=== PATIENT | male | born 1980 | race Caucasian/White ===

== ENCOUNTER 2017-01-23 21:18 | Emergency (ER) | payer OTHER ==
--- NOTE | 2017-01-23 21:30 | PDOC ---
[id number] No Limitations - History of Present Illness Initial Comments: 01/23/17 22:49 Patient is a 36 year old male with past significant medical history of EtOH dependence and major depression who presents to the ED via EMS from [facility] for intoxication. Patient was picked up by EMS at [facility] because he could not be admitted due to intoxication. Patient reports cocaine and alcohol use. Patient states he is unsure of other drug use. Patient presents with papers from [place] 01/23/17 for alcohol intoxication. Patient was last in [facility] in the fall and had a psych admission at [place] for major depression. SH: EtOH abuse gallon of vodka a day, daily smoker, illicit drug use. FH:Mother bipolar, Brother schizophrenia <Jami Zamudio - Last Filed: 01/24/17 02:06> <Lucille Hoang - Last Filed: 01/28/17 19:02> - General Stated Complaint: INTOX Time Seen by Provider: 01/23/17 21:28 Past History <Jami Zamudio - Last Filed: 01/24/17 02:06> - Past Medical History Anemia: No Asthma: No Cancer: No Cardiac Disorders: No CVA: No COPD: No CHF: No Dementia: No Diabetes: No GI Disorders: No Disorders: No HTN: No Hypercholesterolemia: No Kidney Stones: No Liver Disease: No Suicide Attempt (Hx): No Seizures: No Thyroid Disease: No - Surgical History Abdominal Surgery: No Appendectomy: No Cardiac Surgery: No Cholecystectomy: No Lung Surgery: No Neurologic Surgery: No Orthopedic Surgery: No - Psycho/Social/Smoking Cessation Hx Anxiety: No Suicidal Ideation: No Smoking History: Never smoked Have you smoked in the past 12 months: No Hx Alcohol Use: Yes Drug/Substance Use Hx: No Substance Use Type: Alcohol Hx Substance Use Treatment: Yes <Lucille Hoang - Last Filed: 01/28/17 19:02> - Past Medical History Allergies/Adverse Reactions: Allergies Allergy/AdvReac Type Severity Reaction Status Date / Time No Known Allergies Allergy Verified 01/23/17 21:32 Home Medications: Ambulatory Orders Bupropion HCl [Wellbutrin Xl -] 150 mg PO BID 01/24/17 Dextroamphetamine/Amphetamine [Adderall 10 mg Tablet] 30 mg PO DAILY 01/24/17 Zolpidem Tartrate [Ambien] 10 mg PO HS 01/24/17 Bupropion HCl [Wellbutrin -] 150 mg PO BID #30 tablet 01/27/17 Review of Systems - Review of Systems Able to Perform ROS?: No Comments:: 01/23/17 22:49 Unable to obtain due to intoxication. <Jami Zamudio - Last Filed: 01/24/17 02:06> *Physical Exam - Vital Signs Last Vital Signs Temp Pulse Resp BP Pulse Ox 98.2 F 122 H 16 127/94 95 01/23/17 21:33 01/23/17 21:33 01/23/17 21:33 01/23/17 21:33 01/23/17 21:33 - Physical Exam Comments: 01/23/17 23:15 GENERAL: +Urinary incontinence, +disheveled, +lethargic HEENT: +dilated pupils 6 mm bilaterally. Normocephalic, atraumatic. No conjunctival pallor. Sclera are non-icteric. Moist mucous membranes. Oropharynx is clear. NECK: Supple. Full ROM. No JVD. Carotid pulses 2+ and symmetric, without bruits. No thyromegaly. No lymphadenopathy. CARDIOVASCULAR: Regular rate and rhythm. No murmurs, rubs, or gallops. Distal pulses are 2+ and symmetric. PULMONARY: No evidence of respiratory distress. Lungs clear to auscultation bilaterally. No wheezing, rales or rhonchi. ABDOMINAL: Soft. Non-tender. Non-distended. No rebound or guarding. No organomegaly. Normoactive bowel sounds. MUSCULOSKELETAL Normal range of motion at all joints. No bony deformities or tenderness. No CVA tenderness. EXTREMITIES: No cyanosis. No clubbing. No edema. No calf tenderness. SKIN: Warm and dry. Normal capillary refill. No rashes. No jaundice. NEUROLOGICAL: +lethargic upon arrival. Cranial nerves 2-12 intact. No deficits to light touch and temperature in face, upper extremities and lower extremities. No motor deficits in the in face, upper extremities and lower extremities. Normoreflexic in the upper and lower extremities. <Jami Zamudio - Last Filed: 01/24/17 02:06> ED Treatment Course - LABORATORY CBC & Chemistry Diagram: 01/23/17 21:54 01/23/17 21:54 - ADDITIONAL ORDERS Additional order review: 01/23/17 21:54 RBC 5.18 MCV 87.5 MCHC 33.5 RDW 14.1 MPV 7.3 L Neutrophils % 59.6 Lymphocytes % 28.6 Monocytes % 8.0 Eosinophils % 1.8 Basophils % 2.0 <Jami Zamudio - Last Filed: 01/24/17 02:06> - LABORATORY CBC & Chemistry Diagram: 01/23/17 21:54 01/23/17 21:54 <Lucille Hoang - Last Filed: 01/28/17 19:02> Medical Decision Making - Medical Decision Making 01/24/17 02:10 36yo male BIBRama from [facility] detox because he was too inebriated to be admitted -reviewing previous charts show he has been in alcohol detox at [facility] last August and has a long standing history of alcoholism -today he states he had alcohol and cocaine etoh level 530 pt receiving banana bag IV, good respiratory rate plan- send to [facility] DETOX when it is safe <Lucille Hoang - Last Filed: 01/28/17 19:02> *DC/Admit/Observation/Transfer - Attestations Scribe Attestion: 01/23/17 22:50 Documentation prepared by FRED Galindo, acting as medical billing representative for Lucille Hoang MD. <Jami Zamudio - Last Filed: 01/24/17 02:06> <Lucille Hoang - Last Filed: 01/28/17 19:02> Diagnosis at time of Disposition: Alcohol abuse - Discharge Dispostion Disposition: I.P. ALCOHOL/SUBS ABUSE REHAB Condition at time of disposition: Improved - Referrals Referrals: Jeison Currie MD [Staff Physician] - - Patient Instructions Printed Discharge Instructions: DI for Alcohol Abuse Additional Instructions: Activity as tolerated. Stay hydrated. Your blood alcohol level was very elevated but has improved overnight. As we discussed, go directly to [facility], where they will evaluate you for detox admission. Continue your medications as previously prescribed by your physician. Return to the emergency department for any new or concerning symptoms, particularly palpitations or tremors, chest pain or difficulty breathing, confusion.
[2017-01-23] MEDS ORDERED: FOLIC ACID INJECTION - 1 MG, THIAMINE HCL 100 MG, MULTIVIT INJECTION ADULT 10 ML in SOD... IVPB ONE (21:57)
[2017-01-23 22:09] VITALS: TEMP 98.2; BMI 25.0
[2017-01-23] MEDS ORDERED: ONDANSETRON 4 MG/2 ML VIAL ONE (22:18)
[2017-01-23 22:36] LABS: EOSINOPHIL 1.8 % (0-4.5); MCH 29.3 pg (25.7-33.7); MCHC 33.5 g/dl (32.0-35.9); MEAN CELL VOLUME 87.5 fl (80-96); MEAN PLT VOLUME 7.3 fl (7.5-11.1); NEUTROPHILS 59.6 % (42.8-82.8); PLATELET COUNT 410 K/MM3 (134-434); RDW 14.1 % (11.9-15.9); WHITE BLOOD COUNT 6.1 K/mm3 (4.0-10.0)
[2017-01-23 23:02] LABS: INR 1.12 (0.82-1.09); PROTHROMBIN TIME (PATIENT) 12.4 SEC (9.98-11.88)
[2017-01-23 23:10] LABS: SALICYLATE < 4.0 mg/dl (0.0-30.0)
[2017-01-23 23:25] LABS: ALBUMIN 3.8 g/dl (3.4-5.0); ALK PHOS 126 U/L (45-117); ANION GAP 15 (8-16); BILIRUBIN,TOTAL 0.4 mg/dL (0.2-1.0); CALCIUM 8.3 mg/dL (8.5-10.1); CO2 26 mmol/L (21-32); CREATININE 0.8 mg/dL (0.7-1.3); GLUCOSE,RANDOM 103 mg/dL (74-106); SGOT/AST 62 U/L (15-37); SGPT/ALT 55 U/L (12-78); TOT PROT 7.1 g/dl (6.4-8.2)
[2017-01-23 23:49] LABS: ALCOHOL 530.1 mg/dl (0-5)
[2017-01-24] MEDS ORDERED: ONDANSETRON 4 MG/2 ML VIAL ONE (02:23)
--- NOTE | 2017-01-24 07:44 | PDOC ---
*Physical Exam - Vital Signs Last Vital Signs Temp Pulse Resp BP Pulse Ox 98.2 F 104 H 14 114/82 95 01/23/17 21:33 01/24/17 06:53 01/24/17 06:53 01/24/17 06:53 01/24/17 06:50 - Physical Exam Comments: 01/24/17 07:42 Afebrile. Heart rate 80s, O2 sat 99%. Asleep but arousable, pleasant and conversant, has no complaints Exam is nonfocal ED Treatment Course - LABORATORY CBC & Chemistry Diagram: 01/23/17 21:54 01/23/17 21:54 - ADDITIONAL ORDERS Additional order review: Laboratory Results 01/23/17 01/23/17 01/23/17 21:54 21:54 21:54 INR 1.12 Sodium 144 Potassium 3.6 Chloride 103 Carbon Dioxide 26 Anion Gap 15 BUN 5 L D Creatinine 0.8 Creat Clearance w eGFR > 60 Random Glucose 103 Calcium 8.3 L Total Bilirubin 0.4 AST 62 H D ALT 55 D Alkaline Phosphatase 126 H D Total Protein 7.1 Albumin 3.8 Salicylates < 4.0 Acetaminophen < 2.000 L Alcohol, Quantitative 530.1 H* 01/23/17 21:54 RBC 5.18 MCV 87.5 MCHC 33.5 RDW 14.1 MPV 7.3 L Neutrophils % 59.6 Lymphocytes % 28.6 Monocytes % 8.0 Eosinophils % 1.8 Basophils % 2.0 - Medications Given in the ED: ED Medications Discontinued Medications Generic Name Dose Route Start Last Admin Trade Name Freq PRN Reason Stop Dose Admin Folic Acid 1 mg/ Thiamine HCl 1,000 mls @ 125 mls/hr 01/23/17 21:57 01/23/17 22 :52 100 mg/ Multivitamins/Minerals IVPB 01/24/17 05:56 125 mls/hr 10 ml/ Sodium Chloride ONCE ONE Administration Medical Decision Making - Medical Decision Making 01/24/17 07:43 Received signout on this 36-year-old male who presented from [facility] last night severely intoxicated with alcohol. He presented there for admission to detox, but was sent here for medical clearance. Patient's labs are notable for markedly elevated EtOH level last night of 500, he was clinically very intoxicated and sedated. This morning, his vital signs have normalized, he is well-appearing without any complaints and wants to return to [facility] for admission for detox. He was recently admitted there in August 2016. Called to [facility], no response as of yet in admission office. 01/24/17 08:06 Accepted to return to [facility] for assessment and possible admission. Medically improved/stable, will d/c to [facility]. *DC/Admit/Observation/Transfer Diagnosis at time of Disposition: Alcohol abuse - Discharge Dispostion Disposition: I.P. ALCOHOL/SUBS ABUSE REHAB Condition at time of disposition: Improved - Referrals Referrals: Jeison Currie MD [Staff Physician] - - Patient Instructions Printed Discharge Instructions: DI for Alcohol Abuse Additional Instructions: Activity as tolerated. Stay hydrated. Your blood alcohol level was very elevated but has improved overnight. As we discussed, go directly to [facility], where they will evaluate you for detox admission. Continue your medications as previously prescribed by your physician. Return to the emergency department for any new or concerning symptoms, particularly palpitations or tremors, chest pain or difficulty breathing, confusion.
[2017-01-24 08:18] VITALS: BP 105/64; PULSE 92
== END 2017-01-24 08:40 | disposition other institution (70) ==
LOC: JER 21:18
PROC: 3E033GC Introduction of Other Therapeutic Substance into Peripheral Vein, Percutaneous Approach (ICD-10-PCS; principal; 2017-01-23)
DX: F10.10 Alcohol abuse, uncomplicated (principal); Y90.8 Blood alcohol level of 240 mg/100 ml or more
CPT/HCPCS: 36415; 80053; 80307; 85025; 85610; 96365; 96366; 99285-25

== ENCOUNTER 2017-01-24 09:30 | Inpatient (IN) | payer OTHER ==
[2017-01-24 10:38] VITALS: BMI 27.8
--- NOTE | 2017-01-24 12:03 | HP ---
CIWA Score - CIWA Score Nausea/Vomitin-Int. Nausea w/Dry Heave Muscle Tremors: 4-Moderate,w/Arms Extend Anxiety: 4-Mod. Anxious/Guarded Agitation: 4-Moderately Restless Paroxysmal Sweats: 1-Minimal Palms Moist Orientation: 0-Oriented Tacttile Disturbances: 3-Moderate Itch/Numb/Burn Auditory Disturbances: 0-None Visual Disturbances: 0-None Headache: 2-Mild CIWA-Ar Total Score: 22 Admission [facility] - HPI Chief Complaint: DETOX TX FOR ALCOHOL DEPENDENCE. PT WAS SEEN AT [facility] YESTERDAY FOR ALCOHOL INTOXICATION AND BROUGHT BACK THIS MORNING TO CONTINUE WITH DETOX. Allergies/Adverse Reactions: Allergies Allergy/AdvReac Type Severity Reaction Status Date / Time No Known Allergies Allergy Verified 01/24/17 10:09 History of Present Illness: 36 Y/O H/F WITH A HX OF ALCOHOL DEPENDENCE SEEKING DETOX TX. Exam Limitations: No Limitations, Intoxication (SAM STILL 0.208 NOW AFTER 24 HRS OF LAST DRINK.) - Ebola screening Have you traveled outside of the country in the last 21 days: No Have you had contact with anyone from an Ebola affected area: No Have you been sick,other than usual withdrawal symptoms: No Do you have a fever: No - Review of Systems Constitutional: Chills, Loss of Appetite, Night Sweats, Unintentional Wgt. Loss EENT: reports: Blurred Vision, Tearing, Dental Problems (MISSING TOOTH) Respiratory: reports: No Symptoms reported Cardiac: reports: Lightheadedness, Syncope GI: reports: Constipated, Diarrhea, Nausea, Poor Appetite, Poor Fluid Intake, Vomiting : reports: No Symptoms Reported Musculoskeletal: reports: Other (HX BROKEN LEFT RIBS(3)) Integumentary: reports: Bruising (LEFT EYE AND FACIAL DUE TO FALL ON 01/21 ON INTOXICATION.) Neuro: reports: Headache, Tremors, Unsteady Gait, Dizziness Endocrine: reports: No Symptoms Reported Hematology: reports: No Symptoms Reported Psychiatric: reports: Orientated x3, Agitated, Anxious, Depressed Other Systems: Reviewed and Negative Patient History - Patient Medical History Hx Anemia: No Hx Asthma: No Hx Chronic Obstructive Pulmonary Disease (COPD): No Hx Cancer: No Hx Cardiac Disorders: No Hx Congestive Heart Failure: No Hx Hypertension: No Hx Hypercholesterolemia: No Hx Pacemaker: No HX Cerebrovascular Accident: No Hx Seizures: No Hx Dementia: No Hx Diabetes: No Hx Gastrointestinal Disorders: No Hx Liver Disease: No Hx Genitourinary Disorders: No Hx Sexually Transmitted Disorders: No Hx Renal Disease (ESRD): No Hx Thyroid Disease: No Hx Human Immunodeficiency Virus (HIV): No (NEGATIVE HX) Hx Hepatitis C: No Hx Depression: Yes (ON MEDS) Hx Suicide Attempt: No Hx Bipolar Disorder: No Hx Schizophrenia: No - Patient Surgical History Past Surgical History: No Hx Neurologic Surgery: No Hx Cataract Extraction: No Hx Cardiac Surgery: No Hx Lung Surgery: No Hx Breast Surgery: No Hx Breast Biopsy: No Hx Abdominal Surgery: No Hx Appendectomy: No Hx Cholecystectomy: No Hx Genitourinary Surgery: No Hx Orthopedic Surgery: No Anesthesia Reaction: No - PPD History Previous Implant?: Yes Documented Results: Negative w/proof Implanted On Prior [facility] Admission?: Yes Date: 08/18/16 Results: 0 mm PPD to be Administered?: No - Reproductive History Patient is a Female of Child Bearing Age (11 -55 yrs old): No (MALE) - Smoking Cessation Smoking history: Never smoked Have you smoked in the past 12 months: No Hx Chewing Tobacco Use: No Initiated information on smoking cessation: No - Substance & Tx. History Hx Alcohol Use: Yes (VODKA) Hx Substance Use: No (DENIES) Substance Use Type: Alcohol Hx Substance Use Treatment: Yes ([facility]) - Substances Abused Alcohol-vodka Route: Oral Frequency: Daily Amount used: 2 pts. Age of first use: 31 Date of Last Use: 01/23/17 Family Disease History - Family Disease History Family Disease History: Other: Mother (bipolar), Brother (schizophrenia) Admission Physical Exam S - Vital Signs Vital Signs: Vital Signs - 24 hr 01/24/17 10:19 Temperature 97.8 F Pulse Rate 104 H Respiratory 20 Rate Blood Pressure 139/99 - Physical General Appearance: Yes: Moderate Distress, Irritable, Anxious HEENTM: Yes: EOMI, Normocephalic, ELVIS, Pharynx Normal Respiratory: Yes: Chest Non-Tender, Lungs Clear, Normal Breath Sounds, No Respiratory Distress Neck: Yes: No masses,lesions,Nodules, Supple, Trachea in good position Breast: Yes: Breast Exam Deferred Cardiology: Yes: Regular Rhythm, S1, S2, Tachycardia Abdominal: Yes: Normal Bowel Sounds, Non Tender, Soft Genitourinary: Yes: Other Back: Yes: Within Normal Limits Musculoskeletal: Yes: full range of Motion, Gait Steady Extremities: Yes: Normal Range of Motion, Non-Tender, Tremors Neurological: Yes: coding compliance auditor II-XII NML intact, Fully Oriented, Alert, Motor Strength 5/5 Integumentary: Yes: Normal Color, Dry, Warm - Diagnostic (1) Alcohol dependence with uncomplicated withdrawal Status: Acute (2) Depression Status: Chronic (3) Facial abrasion Status: Acute Qualifiers: Encounter type: subsequent encounter Qualified Code(s): S00.81XD - Abrasion of other part of head, subsequent encounter Comment: DUE TO FALL ON INTOXICATION PER PATIENT HX. Cleared for Admission [facility] - Detox or Rehab [facility] Level of Care: Medically Managed Detox Regimen/Protocol: Librium [facility] Breath Alcohol Content Breath Alcohol Content: 0.208 Urine Drug Screen - Results Drug Screen Negative: No Urine Drug Screen Results: BZO-Benzodiazepines
[2017-01-24] MEDS ORDERED: MAGNESIUM CITRATE 300 ML BOTTLE PO PRN (12:12)
[2017-01-24] MEDS ORDERED: diphenhydrAMINE HCL 50 MG CAPSULE PO PRN (12:12)
[2017-01-24] MEDS ORDERED: hydrOXYzine PAMOATE 25 MG CAPSULE (FP) PO PRN (12:12)
[2017-01-24] MEDS ORDERED: MAG HYDROX/AL HYDROX/SIMETH 30 ML UNIT-DOSE CUP PO PRN (12:12)
[2017-01-24] MEDS ORDERED: LOPERAMIDE HCL 2 MG CAPSULE PO PRN (12:12)
[2017-01-24] MEDS ORDERED: IBUPROFEN 400 MG TABLET (FP) PO PRN (12:12)
[2017-01-24] MEDS ORDERED: P-EPHED 60MG/TRIPROLIDI 2.5MG TABLET PO PRN (12:12)
[2017-01-24] MEDS ORDERED: MAGNESIUM HYDROX 2400MG/30ML ORAL SUSPENSION 30 ML CUP PO PRN (12:12)
[2017-01-24] MEDS ORDERED: ACETAMINOPHEN 325 MG TABLET (FP) PO PRN (12:12)
[2017-01-24] MEDS ORDERED: MENTHOL/PHENOL 1 EACH UD MM PRN (12:12)
[2017-01-24] MEDS ORDERED: guaiFENesin/D-METHORPHAN HB 10 ML UNIT-DOSE CUPS PO PRN (12:12)
[2017-01-24] MEDS ORDERED: chlordiazePOXIDE HCL 25 MG CAPSULE PO ONE (12:30)
--- NOTE | 2017-01-24 15:10 | CONSULT ---
[facility] Psychiatric Consult - Data Date of interview: 01/24/17 Admission source: [facility] Identifying data: Readmission to [facility] for this 36 y/o male,from [place] descent,seeking detox treatment for alcohol dependence.Patient is ,a father of one,homeless,unemployed and currently deprived of any source of income. Substance Abuse History: - Smoking Cessation. Smoking history: Never smoked. Have you smoked in the past 12 months: No. Hx Chewing Tobacco Use: No. Initiated information on smoking cessation: No. - Substance & Tx. History. Hx Alcohol Use: Yes (VODKA). Hx Substance Use: No (DENIES). Substance Use Type: Alcohol. Hx Substance Use Treatment: Yes ([facility]). - Substances Abused. Alcohol-vodka. Route: Oral. Frequency: Daily. Amount used: 2 pts. Age of first use: 31. Date of Last Use: 01/23/17. Confirmed by patient. Medical History: Patient endorses good general health. Psychiatric History: History of psychiatric hospitalizations at [facility] in [facility].Diagnosed with ADHD and MDD.Prescribed wellbutrin 150 mg po bid + adderall 20 mg po daily + ambien 10 mg/hs.Mr Noel sees a psychiatrist at the [facility].Patient denies history of suicide attempts. Physical/Sexual Abuse/Trauma History: Patient denies history of suicide attempts. Additional Comment: Urine Drug Screen Results: BZO-Benzodiazepines.Noted. Mental Status Exam - Mental Status Exam Alert and Oriented to: Time, Place, Person Cognitive Function: Good Patient Appearance: Well Groomed Mood: Sad, Nervous, Withdrawn, Anxious Affect: Mood Congruent, Constricted Patient Behavior: Fatigued, Appropriate, Cooperative Speech Pattern: Clear, Appropriate Voice Loudness: Normal Thought Process: Goal Oriented Thought Disorder: Not Present Hallucinations: Denies Suicidal Ideation: Denies Homicidal Ideation: Denies Insight/Judgement: Fair Sleep: Poorly, Difficulty falling asleep Appetite: Good Muscle strength/Tone: Normal Gait/Station: Normal Psychiatric Findings - Problem List ([place] 1, 2,3) (1) Alcohol dependence with uncomplicated withdrawal Current Visit: Yes Status: Acute (2) Alcohol-induced mood disorder Current Visit: Yes Status: Acute (3) Attention deficit disorder (ADD) Current Visit: Yes Status: Chronic (4) MDD (major depressive disorder) Current Visit: Yes Status: Suspected (5) Insomnia Current Visit: Yes Status: Acute - Initial Treatment Plan Initial Treatment Plan: Psychoeducation.Detoxification.Medications : wellbutrin 150 mg po bid (second dose no later than 4 pm + adderall XL 20 mg po daily @ 8 am + zolpidem 10 mg po hs prn.Side effects/benefits of each drug are discussed with the patient.He agrees with this plan of care.Observation.
[2017-01-24] MEDS: chlordiazePOXIDE HCL 25 MG CAPSULE PO SCH ×2 (17:15→22:22)
[2017-01-24 17:21] LABS: URINE APPEARANCE CLEAR; URINE BILIRUBIN NEGATIVE (NEGATIVE); URINE BLOOD NEGATIVE (NEGATIVE); URINE COLOR YELLOW; URINE GLUCOSE (UA) NEGATIVE (NEGATIVE); URINE KETONE NEGATIVE (NEGATIVE); URINE LEUK ESTERASE NEGATIVE (NEGATIVE); URINE NITRITE NEGATIVE (NEGATIVE); URINE UROBILINOGEN 2.0 E.U/dl E.U./dl (0.2-1.0)
[2017-01-24 17:43] LABS: URINE PROTEIN 1+ (NEGATIVE)
[2017-01-24 19:43] LABS: URINE MUCUS FEW; URINE RBC 1 /hpf (0-3); URINE WBC <1 /hpf (3-5)
[2017-01-24] MEDS: buPROPion HCL 75 MG TABLET PO SCH (19:48)
[2017-01-24] MEDS: chlordiazePOXIDE HCL 25 MG CAPSULE PO PRN (19:48)
[2017-01-24] MEDS: THIAMINE HCL 100 MG TABLET (FP) PO SCH (22:22)
[2017-01-24] MEDS: ZOLPIDEM TARTRATE 5 MG TABLET PO PRN (22:22)
[2017-01-25] MEDS: chlordiazePOXIDE HCL 25 MG CAPSULE PO SCH ×4 (05:25→22:21)
[2017-01-25] MEDS: DEXTROAMPHETAMINE/AMPHETAMINE 10 MG CAP.ER.24H PO SCH (07:13)
[2017-01-25] MEDS: buPROPion HCL 75 MG TABLET PO SCH ×2 (09:47→17:29)
[2017-01-25] MEDS: chlordiazePOXIDE HCL 25 MG CAPSULE PO PRN (09:47)
[2017-01-25] MEDS: PRENATAL VITAMINS W/ FOLIC ACID TABLET (FP) PO SCH (09:47)
[2017-01-25] MEDS ORDERED: buPROPion HCL 75 MG TABLET PO SCH (10:00)
--- NOTE | 2017-01-25 11:05 | PN ---
S CIWA - CIWA Score Nausea/Vomitin-Int. Nausea w/Dry Heave Muscle Tremors: 4-Moderate,w/Arms Extend Anxiety: 4-Mod. Anxious/Guarded Agitation: 3 Paroxysmal Sweats: 3 Orientation: 0-Oriented Tacttile Disturbances: 0-None Auditory Disturbances: 0-None Visual Disturbances: 0-None Headache: 0-None Present CIWA-Ar Total Score: 18 BHS Progress Note (SOAP) Subjective: Anxiety,tremors,interrupted sleep,restless Objective: 01/25/17 11:04 Vital Signs - 8 hr 01/25/17 01/25/17 06:30 09:35 Temperature 95.2 F L 96.2 F L Pulse Rate 93 H 105 H Respiratory 18 19 Rate Blood Pressure 132/91 130/93 Laboratory Tests 01/24/17 13:50 Urine Color Yellow Urine Appearance Clear Urine pH 6.0 Ur Specific [place] 1.016 Urine Protein 1+ H Urine Glucose (UA) Negative Urine Ketones Negative Urine Blood Negative Urine Nitrite Negative Urine Bilirubin Negative Urine Urobilinogen 2.0 e.u/dl Ur Leukocyte Esterase Negative Urine RBC 1 Urine WBC <1 Ur Epithelial Cells Rare Urine Mucus Few Assessment: 01/25/17 11:04 Withdrawal sx. Plan: Continue detox
--- NOTE | 2017-01-25 17:18 | EKG ---
Test Reason : Blood Pressure : / mmHG Vent. Rate : 100 BPM Atrial Rate : 100 BPM P-R Int : 148 ms QRS Dur : 084 ms QT Int : 354 ms P-R-T Axes : 070 041 049 degrees QTc Int : 456 ms NORMAL SINUS RHYTHM NORMAL ECG NO PREVIOUS ECGS AVAILABLE Confirmed by ELISABETH PATTERSON MD ([id number]) on 01/25/2017 5:18:34 PM Referred By: Abdi Madrigal Confirmed By:ELISABETH PATTERSON MD
[2017-01-25] MEDS: THIAMINE HCL 100 MG TABLET (FP) PO SCH (22:21)
[2017-01-25] MEDS: ZOLPIDEM TARTRATE 5 MG TABLET PO PRN (22:21)
[2017-01-26] MEDS: chlordiazePOXIDE HCL 25 MG CAPSULE PO SCH ×2 (05:13→10:16)
[2017-01-26] MEDS: PRENATAL VITAMINS W/ FOLIC ACID TABLET (FP) PO SCH (10:16)
[2017-01-26] MEDS: DEXTROAMPHETAMINE/AMPHETAMINE 10 MG CAP.ER.24H PO SCH (10:16)
[2017-01-26] MEDS: buPROPion HCL 75 MG TABLET PO SCH ×2 (10:16→17:15)
--- NOTE | 2017-01-26 12:38 | PN ---
[facility] CIWA - CIWA Score Nausea/Vomitin-No Nausea/No Vomiting Muscle Tremors: 4-Moderate,w/Arms Extend Anxiety: 4-Mod. Anxious/Guarded Agitation: 2 Paroxysmal Sweats: 3 Orientation: 0-Oriented Tacttile Disturbances: 2-Mild Itch/Numbness/Burn Auditory Disturbances: 2-Mild Harshness/Frighten Visual Disturbances: 0-None Headache: 0-None Present CIWA-Ar Total Score: 17 BHS Progress Note (SOAP) Subjective: Interrupted sleep, Diarrhea, Sweating, Poor appetite, Tremors. Objective: PT. A & O X 3, OBSERVED AMBULATING ON UNIT. 01/26/17 12:37 Vital Signs Temperature 96.7 F L 01/26/17 10:43 Pulse Rate 87 01/26/17 10:43 Respiratory Rate 18 01/26/17 10:43 Blood Pressure 130/78 01/26/17 10:43 O2 Sat by Pulse Oximetry (%) Laboratory Last Values Urine Color Yellow 01/24/17 13:50 Urine Appearance Clear 01/24/17 13:50 Urine pH 6.0 (5.0-8.0) 01/24/17 13:50 Ur Specific [place] 1.016 (1.001-1.035) 01/24/17 13:50 Urine Protein 1+ (NEGATIVE) H 01/24/17 13:50 Urine Glucose (UA) Negative (NEGATIVE) 01/24/17 13:50 Urine Ketones Negative (NEGATIVE) 01/24/17 13:50 Urine Blood Negative (NEGATIVE) 01/24/17 13:50 Urine Nitrite Negative (NEGATIVE) 01/24/17 13:50 Urine Bilirubin Negative (NEGATIVE) 01/24/17 13:50 Urine Urobilinogen 2.0 e.u/dl E.U./dl (0.2-1.0) 01/24/17 13:50 Ur Leukocyte Esterase Negative (NEGATIVE) 01/24/17 13:50 Urine RBC 1 /hpf (0-3) 01/24/17 13:50 Urine WBC <1 /hpf (3-5) 01/24/17 13:50 Ur Epithelial Cells Rare /hpf (FEW) 01/24/17 13:50 Urine Mucus Few 01/24/17 13:50 RPR Titer Nonreactive (NONREACTIVE) 01/25/17 06:00 LABS NOTED. Assessment: 01/26/17 12:37 WITHDRAWAL SYMPTOMS. Plan: CONTINUE DETOX. ADVISED PATIENT TO FOLLOW-UP WITH HARDWARE SALES ASSISTANT / REHAB MEDICAL PROVIDER AFTER DISCHARGE FROM DETOX FOR GENERAL MEDICAL ASSESSMENT AND FOR ANY ABNORMAL ADMISSION LAB VALUES.
[2017-01-26] MEDS: chlordiazePOXIDE 5 MG CAPSULE PO SCH ×2 (17:15→22:28)
[2017-01-26] MEDS: ZOLPIDEM TARTRATE 5 MG TABLET PO PRN (22:28)
[2017-01-26] MEDS: THIAMINE HCL 100 MG TABLET (FP) PO SCH (22:28)
[2017-01-27] MEDS: chlordiazePOXIDE 5 MG CAPSULE PO SCH ×2 (05:33→10:37)
[2017-01-27] MEDS: DEXTROAMPHETAMINE/AMPHETAMINE 10 MG CAP.ER.24H PO SCH (07:22)
[2017-01-27] MEDS: PRENATAL VITAMINS W/ FOLIC ACID TABLET (FP) PO SCH (10:37)
[2017-01-27] MEDS: buPROPion HCL 75 MG TABLET PO SCH ×2 (10:37→17:29)
--- NOTE | 2017-01-27 11:50 | PN ---
BHS Progress Note (SOAP) Subjective: Sweating,interrupted sleep,restless Objective: 01/27/17 11:49 Vital Signs - 8 hr 01/27/17 01/27/17 06:21 09:30 Temperature 96.5 F L 97.7 F Pulse Rate 87 107 H Respiratory 18 18 Rate Blood Pressure 112/88 128/95 Laboratory Tests 01/24/17 01/25/17 13:50 06:00 Urine Color Yellow Urine Appearance Clear Urine pH 6.0 Ur Specific [place] 1.016 Urine Protein 1+ H Urine Glucose (UA) Negative Urine Ketones Negative Urine Blood Negative Urine Nitrite Negative Urine Bilirubin Negative Urine Urobilinogen 2.0 e.u/dl Ur Leukocyte Esterase Negative Urine RBC 1 Urine WBC <1 Ur Epithelial Cells Rare Urine Mucus Few RPR Titer Nonreactive Assessment: 01/27/17 11:49 Withdrawal sx. Plan: Continue detox
[2017-01-27] MEDS: BACITRACIN 30 GM TUBE TOPICAL OINTMENT TP SCH ×2 (12:59→22:30)
[2017-01-27] MEDS: chlordiazePOXIDE HCL 10 MG CAPSULE PO SCH ×2 (17:29→22:31)
[2017-01-27] MEDS: THIAMINE HCL 100 MG TABLET (FP) PO SCH (22:31)
[2017-01-27] MEDS: ZOLPIDEM TARTRATE 5 MG TABLET PO PRN (22:32)
[2017-01-28] MEDS: chlordiazePOXIDE HCL 10 MG CAPSULE PO SCH (05:28)
[2017-01-28 06:25] VITALS: BP 108/86; PULSE 95; TEMP 96
[2017-01-28] MEDS: DEXTROAMPHETAMINE/AMPHETAMINE 10 MG CAP.ER.24H PO SCH (07:21)
--- NOTE | 2017-01-28 09:26 | DS ---
[facility] Detox Discharge Summary Admission Date: 01/24/17 Discharge Date: 01/28/17 - History Present History: Alcohol Dependence Pertinent Past History: ADHD - Physical Exam Results Vital Signs: Vital Signs Temperature 96.0 F L 01/28/17 06:25 Pulse Rate 95 H 01/28/17 06:25 Respiratory Rate 16 01/28/17 06:25 Blood Pressure 108/86 01/28/17 06:25 O2 Sat by Pulse Oximetry (%) Pertinent Admission Physical Exam Findings: Withdrawal sx. Laboratory Last Values Urine Color Yellow 01/24/17 13:50 Urine Appearance Clear 01/24/17 13:50 Urine pH 6.0 (5.0-8.0) 01/24/17 13:50 Ur Specific [place] 1.016 (1.001-1.035) 01/24/17 13:50 Urine Protein 1+ (NEGATIVE) H 01/24/17 13:50 Urine Glucose (UA) Negative (NEGATIVE) 01/24/17 13:50 Urine Ketones Negative (NEGATIVE) 01/24/17 13:50 Urine Blood Negative (NEGATIVE) 01/24/17 13:50 Urine Nitrite Negative (NEGATIVE) 01/24/17 13:50 Urine Bilirubin Negative (NEGATIVE) 01/24/17 13:50 Urine Urobilinogen 2.0 e.u/dl E.U./dl (0.2-1.0) 01/24/17 13:50 Ur Leukocyte Esterase Negative (NEGATIVE) 01/24/17 13:50 Urine RBC 1 /hpf (0-3) 01/24/17 13:50 Urine WBC <1 /hpf (3-5) 01/24/17 13:50 Ur Epithelial Cells Rare /hpf (FEW) 01/24/17 13:50 Urine Mucus Few 01/24/17 13:50 RPR Titer Nonreactive (NONREACTIVE) 01/25/17 06:00 CBC & CMP done in ER, noted - Treatment Hospital Course: Detox Protocol Followed, Detoxed Safely, Responded well, Discharged Condition Good, Rehab Referral Accepted Patient has Accepted a Rehab Referral to: 12-step meetings - Medication Discharge Medications: Ambulatory Orders Bupropion HCl [Wellbutrin Xl -] 150 mg PO BID 01/24/17 Dextroamphetamine/Amphetamine [Adderall 10 mg Tablet] 30 mg PO DAILY 01/24/17 Zolpidem Tartrate [Ambien] 10 mg PO HS 01/24/17 Bupropion HCl [Wellbutrin -] 150 mg PO BID #30 tablet 01/27/17 - Diagnosis (1) Alcohol dependence with uncomplicated withdrawal Current Visit: Yes Status: Acute (2) Alcohol-induced mood disorder Current Visit: Yes Status: Acute (3) Insomnia Current Visit: Yes Status: Acute (4) Attention deficit disorder (ADD) Current Visit: Yes Status: Chronic (5) MDD (major depressive disorder) Current Visit: Yes Status: Suspected - AMA Did Patient Leave Against Medical Advice: No
== END 2017-01-28 09:25 | disposition home or self-care (01) | DRG 775 ==
LOC: YASAS 09:30 → Y3N 11:33
PROVIDERS: ADMIT Internal Medicine Addiction Medicine; ATTEND Internal Medicine Addiction Medicine
PROC: HZ2ZZZZ Detoxification Services for Substance Abuse Treatment (ICD-10-PCS; principal; 2017-01-28)
DX: F10.230 Alcohol dependence with withdrawal, uncomplicated (principal); F10.24 Alcohol dependence with alcohol-induced mood disorder; F32.9 Major depressive disorder, single episode, unspecified; F98.8 Other specified behavioral and emotional disorders with onset usually occurring in childhood and adolescence; G47.00 Insomnia, unspecified
CPT/HCPCS: 36415; 81003; 81015; 86593; 93005; 93010

== ENCOUNTER 2017-02-16 08:39 | Inpatient (IN) | payer OTHER ==
[2017-02-16 10:58] VITALS: BMI 28.3
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
[2017-02-16] MEDS ORDERED: IBUPROFEN 400 MG TABLET (FP) PO PRN (11:56)
[2017-02-16] MEDS ORDERED: MENTHOL/PHENOL 1 EACH UD MM PRN (11:56)
[2017-02-16] MEDS ORDERED: MAGNESIUM HYDROX 2400MG/30ML ORAL SUSPENSION 30 ML CUP PO PRN (11:56)
[2017-02-16] MEDS ORDERED: P-EPHED 60MG/TRIPROLIDI 2.5MG TABLET PO PRN (11:56)
[2017-02-16] MEDS ORDERED: diphenhydrAMINE HCL 50 MG CAPSULE PO PRN (11:56)
[2017-02-16] MEDS ORDERED: guaiFENesin/D-METHORPHAN HB 10 ML UNIT-DOSE CUPS PO PRN (11:56)
[2017-02-16] MEDS ORDERED: LOPERAMIDE HCL 2 MG CAPSULE PO PRN (11:56)
[2017-02-16] MEDS ORDERED: hydrOXYzine PAMOATE 50 MG CAPSULE (FP) PO PRN (11:56)
[2017-02-16] MEDS ORDERED: MAGNESIUM CITRATE 300 ML BOTTLE PO PRN (11:56)
[2017-02-16] MEDS ORDERED: MAG HYDROX/AL HYDROX/SIMETH 30 ML UNIT-DOSE CUP PO PRN (11:56)
[2017-02-16] MEDS ORDERED: ACETAMINOPHEN 325 MG TABLET (FP) PO PRN (11:56)
[2017-02-16] MEDS ORDERED: chlordiazePOXIDE HCL 25 MG CAPSULE PO ONE (12:03)
[2017-02-16] MEDS: chlordiazePOXIDE HCL 25 MG CAPSULE PO PRN (14:47)
--- NOTE | 2017-02-16 16:35 | CONSULT ---
[facility] Psychiatric Consult - Data Date of interview: 02/16/17 Admission source: [facility] Identifying data: Another admission to [facility] for this 36 y/o male, from [place] descent,seeking detox treatment for alcohol dependence.Patient is ,a father of one,now domiciled and employed (as per self-report). Substance Abuse History: - Smoking Cessation. Smoking history: Never smoked. Have you smoked in the past 12 months: No. Hx Chewing Tobacco Use: No. - Substance & Tx. History. Hx Alcohol Use: Yes. Hx Substance Use: No. Substance Use Type: Alcohol. Hx Substance Use Treatment: Yes ([facility] 01/24/17 to 01/28/17). - Substances Abused. Alcohol. Route: Oral. Frequency: Daily. Amount used: 1 AND 1/2 PINTS VODKA. Age of first use: 31. Date of Last Use: . Confirmed by patient. Medical History: No medical problems reported. Psychiatric History: No change in historical profile since encounter of 12/2016 : multiple psychiatric hospitalizations ([facility] in [facility]).Diagnosed with ADHD and MDD.Prescribed wellbutrin 150 mg po bid + adderall 20 mg po daily + ambien 10 mg/hs.Mr Noel is still seeinng a psychiatrist at the [facility].No history of suicide attempts. Physical/Sexual Abuse/Trauma History: No history. Additional Comment: Urine Drug Screen Results: BZO-Benzodiazepines.Noted. Mental Status Exam - Mental Status Exam Alert and Oriented to: Time, Place, Person Patient Appearance: Well Groomed Mood: Withdrawn, Apprehensive, Hopeful Affect: Mood Congruent Patient Behavior: Fatigued, Appropriate, Cooperative (well-mannered) Speech Pattern: Clear, Appropriate Voice Loudness: Normal Thought Process: Goal Oriented Thought Disorder: Not Present Hallucinations: Denies Suicidal Ideation: Denies Homicidal Ideation: Denies Insight/Judgement: Poor Sleep: Fair Appetite: Good Muscle strength/Tone: Normal Gait/Station: Normal Psychiatric Findings - Problem List ([place] 1, 2,3) (1) Alcohol dependence with uncomplicated withdrawal Current Visit: Yes Status: Acute (2) Alcohol-induced mood disorder Current Visit: Yes Status: Acute (3) MDD (major depressive disorder) Current Visit: Yes Status: Chronic (4) Attention deficit disorder (ADD) Current Visit: Yes Status: Chronic (5) Insomnia Current Visit: Yes Status: Acute - Initial Treatment Plan Initial Treatment Plan: Psychoeducation.Detoxification.Wellbutrin 150 mg po bid.Patient is made aware of the risk for seizures.He requests addition of wellbutrin to his detox regimen.Observation.
[2017-02-16] MEDS: chlordiazePOXIDE HCL 25 MG CAPSULE PO SCH ×2 (17:47→22:14)
[2017-02-16 17:59] LABS: URINE APPEARANCE CLEAR; URINE BILIRUBIN NEGATIVE (NEGATIVE); URINE COLOR YELLOW; URINE GLUCOSE (UA) 2+ (NEGATIVE); URINE KETONE TRACE (NEGATIVE); URINE LEUK ESTERASE NEGATIVE (NEGATIVE); URINE NITRITE NEGATIVE (NEGATIVE); URINE PROTEIN NEGATIVE (NEGATIVE); URINE UROBILINOGEN 2.0 E.U/dl E.U./dl (0.2-1.0)
[2017-02-16 18:58] LABS: URINE BLOOD 1+ (NEGATIVE)
[2017-02-16 19:15] LABS: URINE MUCUS RARE; URINE RBC 2 /hpf (0-3); URINE WBC <1 /hpf (3-5)
[2017-02-16] MEDS: THIAMINE HCL 100 MG TABLET (FP) PO SCH (22:14)
[2017-02-17] MEDS: chlordiazePOXIDE HCL 25 MG CAPSULE PO SCH ×4 (05:27→22:18)
[2017-02-17] MEDS: buPROPion HCL 75 MG TABLET PO SCH ×2 (10:26→17:33)
[2017-02-17] MEDS: PRENATAL VITAMINS W/ FOLIC ACID TABLET (FP) PO SCH (10:26)
[2017-02-17 10:33] LABS: MCH 29.8 pg (25.7-33.7); MCHC 33.3 g/dl (32.0-35.9); MEAN CELL VOLUME 89.3 fl (80-96); MEAN PLT VOLUME 8.1 fl (7.5-11.1); PLATELET COUNT 193 K/MM3 (134-434); RDW 14.4 % (11.9-15.9); WHITE BLOOD COUNT 7.8 K/mm3 (4.0-10.0)
[2017-02-17 11:04] LABS: ALBUMIN 3.8 g/dl (3.4-5.0); ALK PHOS 122 U/L (45-117); ANION GAP 10 (8-16); BILIRUBIN,TOTAL 1.4 mg/dL (0.2-1.0); CALCIUM 9.1 mg/dL (8.5-10.1); CO2 31 mmol/L (21-32); COCKROFT - GAULT 136.43; CREATININE 0.8 mg/dL (0.7-1.3); GLUCOSE,RANDOM 82 mg/dL (74-106); SGOT/AST 61 U/L (15-37); SGPT/ALT 48 U/L (12-78); TOT PROT 6.9 g/dl (6.4-8.2)
[2017-02-17] MEDS: chlordiazePOXIDE HCL 25 MG CAPSULE PO PRN (13:26)
[2017-02-17] MEDS ORDERED: POTASSIUM CHLORIDE TABS 20 MEQ TABLET.ER (FP) PO ONE (16:57)
--- NOTE | 2017-02-17 16:57 | PN ---
S CIWA - CIWA Score Nausea/Vomitin-Mild Nausea/No Vomiting Muscle Tremors: 3 Anxiety: 4-Mod. Anxious/Guarded Agitation: 3 Paroxysmal Sweats: 3 Orientation: 0-Oriented Tacttile Disturbances: 3-Moderate Itch/Numb/Burn Auditory Disturbances: 0-None Visual Disturbances: 2-Mild Sensitivity Headache: 0-None Present CIWA-Ar Total Score: 19 BHS Progress Note (SOAP) Subjective: Stomach Cramping, Interrupted sleep, Sweating, Tremors. Objective: PT. A & O X 3, OBSERVED AMBULATING ON UNIT. 02/17/17 16:55 Vital Signs Temperature 96.4 F L 02/17/17 13:56 Pulse Rate 98 H 02/17/17 13:56 Respiratory Rate 18 02/17/17 13:56 Blood Pressure 136/96 02/17/17 13:56 O2 Sat by Pulse Oximetry (%) Laboratory Last Values WBC 7.8 K/mm3 (4.0-10.0) 02/17/17 08:00 RBC 5.03 M/mm3 (4.00-5.60) 02/17/17 08:00 Hgb 15.0 GM/dL (11.7-16.9) 02/17/17 08:00 Hct 44.9 % (35.4-49) 02/17/17 08:00 MCV 89.3 fl (80-96) 02/17/17 08:00 MCHC 33.3 g/dl (32.0-35.9) 02/17/17 08:00 RDW 14.4 % (11.9-15.9) 02/17/17 08:00 Plt Count 193 K/MM3 (134-434) D 02/17/17 08:00 MPV 8.1 fl (7.5-11.1) D 02/17/17 08:00 Sodium 139 mmol/L (136-145) 02/17/17 08:00 Potassium 3.3 mmol/L (3.5-5.1) L 02/17/17 08:00 Chloride 98 mmol/L (98-107) 02/17/17 08:00 Carbon Dioxide 31 mmol/L (21-32) 02/17/17 08:00 Anion Gap 10 (8-16) 02/17/17 08:00 BUN 6 mg/dL (7-18) L 02/17/17 08:00 Creatinine 0.8 mg/dL (0.7-1.3) 02/17/17 08:00 Creat Clearance w eGFR > 60 (>60) 02/17/17 08:00 Random Glucose 82 mg/dL (74-106) D 02/17/17 08:00 Calcium 9.1 mg/dL (8.5-10.1) 02/17/17 08:00 Total Bilirubin 1.4 mg/dL (0.2-1.0) H D 02/17/17 08:00 AST 61 U/L (15-37) H 02/17/17 08:00 ALT 48 U/L (12-78) 02/17/17 08:00 Alkaline Phosphatase 122 U/L (45-117) H 02/17/17 08:00 Total Protein 6.9 g/dl (6.4-8.2) 02/17/17 08:00 Albumin 3.8 g/dl (3.4-5.0) 02/17/17 08:00 Urine Color Yellow 02/16/17 15:00 Urine Appearance Clear 02/16/17 15:00 Urine pH 6.0 (5.0-8.0) 02/16/17 15:00 Ur Specific [place] 1.012 (1.001-1.035) 02/16/17 15:00 Urine Protein Negative (NEGATIVE) 02/16/17 15:00 Urine Glucose (UA) 2+ (NEGATIVE) H 02/16/17 15:00 Urine Ketones Trace (NEGATIVE) H 02/16/17 15:00 Urine Blood 1+ (NEGATIVE) H 02/16/17 15:00 Urine Nitrite Negative (NEGATIVE) 02/16/17 15:00 Urine Bilirubin Negative (NEGATIVE) 02/16/17 15:00 Urine Urobilinogen 2.0 e.u/dl E.U./dl (0.2-1.0) 02/16/17 15:00 Ur Leukocyte Esterase Negative (NEGATIVE) 02/16/17 15:00 Urine RBC 2 /hpf (0-3) 02/16/17 15:00 Urine WBC <1 /hpf (3-5) 02/16/17 15:00 Urine Mucus Rare 02/16/17 15:00 RPR Titer Nonreactive (NONREACTIVE) 02/17/17 08:00 LABS NOTED. Assessment: 02/17/17 16:56 WITHDRAWAL SYMPTOMS. Plan: CONTINUE DETOX. K, 20 MEQ NOW AND THEN 20 MEQ BID AFTER. ADVISED PATIENT TO FOLLOW-UP WITH SALES AND MARKETING ASSISTANT / REHAB MEDICAL PROVIDER AFTER DISCHARGE FROM DETOX FOR GENERAL MEDICAL ASSESSMENT AND FOR ABNORMAL ADMISSION LAB VALUES.
[2017-02-17] MEDS: ZOLPIDEM TARTRATE 5 MG TABLET PO PRN (22:18)
[2017-02-17] MEDS: POTASSIUM CHLORIDE TABS 20 MEQ TABLET.ER (FP) PO SCH (22:18)
[2017-02-17] MEDS: THIAMINE HCL 100 MG TABLET (FP) PO SCH (22:18)
[2017-02-18] MEDS: chlordiazePOXIDE HCL 25 MG CAPSULE PO SCH ×2 (05:25→10:16)
[2017-02-18] MEDS: buPROPion HCL 75 MG TABLET PO SCH ×2 (09:36→15:34)
[2017-02-18] MEDS: PRENATAL VITAMINS W/ FOLIC ACID TABLET (FP) PO SCH (09:36)
[2017-02-18] MEDS: POTASSIUM CHLORIDE TABS 20 MEQ TABLET.ER (FP) PO SCH ×2 (09:36→22:16)
--- NOTE | 2017-02-18 11:48 | PN ---
BHS CIWA - CIWA Score Nausea/Vomitin Muscle Tremors: 4-Moderate,w/Arms Extend Anxiety: 4-Mod. Anxious/Guarded Agitation: 4-Moderately Restless Paroxysmal Sweats: 3 Orientation: 0-Oriented Tacttile Disturbances: 0-None Auditory Disturbances: 0-None Visual Disturbances: 0-None Headache: 0-None Present CIWA-Ar Total Score: 18 BHS Progress Note (SOAP) Subjective: nausea, sweats, interrupted sleep, anxiety, tremors Objective: 02/18/17 11:47 Vital Signs - 8 hr 02/18/17 02/18/17 06:16 10:34 Temperature 95.8 F L 97.2 F L Pulse Rate 92 H 93 H Respiratory 18 20 Rate Blood Pressure 125/95 126/93 tachycardia, hypertension Laboratory Tests 02/16/17 02/17/17 02/17/17 15:00 08:00 08:00 WBC 7.8 RBC 5.03 Hgb 15.0 Hct 44.9 MCV 89.3 MCHC 33.3 RDW 14.4 Plt Count 193 D MPV 8.1 D Sodium 139 Potassium 3.3 L Chloride 98 Carbon Dioxide 31 Anion Gap 10 BUN 6 L Creatinine 0.8 Creat Clearance w eGFR > 60 Random Glucose 82 D Calcium 9.1 Total Bilirubin 1.4 H D AST 61 H ALT 48 Alkaline Phosphatase 122 H Total Protein 6.9 Albumin 3.8 Urine Color Yellow Urine Appearance Clear Urine pH 6.0 Ur Specific [place] 1.012 Urine Protein Negative Urine Glucose (UA) 2+ H Urine Ketones Trace H Urine Blood 1+ H Urine Nitrite Negative Urine Bilirubin Negative Urine Urobilinogen 2.0 e.u/dl Ur Leukocyte Esterase Negative Urine RBC 2 Urine WBC <1 Urine Mucus Rare RPR Titer 02/17/17 08:00 WBC RBC Hgb Hct MCV MCHC RDW Plt Count MPV Sodium Potassium Chloride Carbon Dioxide Anion Gap BUN Creatinine Creat Clearance w eGFR Random Glucose Calcium Total Bilirubin AST ALT Alkaline Phosphatase Total Protein Albumin Urine Color Urine Appearance Urine pH Ur Specific [place] Urine Protein Urine Glucose (UA) Urine Ketones Urine Blood Urine Nitrite Urine Bilirubin Urine Urobilinogen Ur Leukocyte Esterase Urine RBC Urine WBC Urine Mucus RPR Titer Nonreactive hypokalemia, elevated lfts Assessment: 02/18/17 11:48 withdrawal sx, low k, HTN Plan: cont detox, supplement k, prn medications recommended, control bp
[2017-02-18] MEDS: chlordiazePOXIDE HCL 25 MG CAPSULE PO PRN (14:05)
--- NOTE | 2017-02-18 14:32 | EKG ---
Test Reason : Blood Pressure : / mmHG Vent. Rate : 089 BPM Atrial Rate : 089 BPM P-R Int : 156 ms QRS Dur : 092 ms QT Int : 384 ms P-R-T Axes : 065 035 047 degrees QTc Int : 467 ms NORMAL SINUS RHYTHM NORMAL ECG WHEN COMPARED WITH ECG OF 24-JAN-2017 12:18, NO SIGNIFICANT CHANGE WAS FOUND Confirmed by SAMANTHA SANTAMARIA MD ([id number]) on 02/18/2017 2:32:26 PM Referred By: Jeison Currie Confirmed By:SAMANTHA SANTAMARIA MD
[2017-02-18] MEDS: chlordiazePOXIDE 5 MG CAPSULE PO SCH ×2 (17:24→22:17)
[2017-02-18] MEDS: THIAMINE HCL 100 MG TABLET (FP) PO SCH (22:16)
[2017-02-18] MEDS: ZOLPIDEM TARTRATE 5 MG TABLET PO PRN (22:17)
[2017-02-19] MEDS: chlordiazePOXIDE 5 MG CAPSULE PO SCH ×2 (05:33→10:21)
[2017-02-19] MEDS: PRENATAL VITAMINS W/ FOLIC ACID TABLET (FP) PO SCH (10:21)
[2017-02-19] MEDS: buPROPion HCL 75 MG TABLET PO SCH ×2 (10:21→17:00)
[2017-02-19] MEDS: POTASSIUM CHLORIDE TABS 20 MEQ TABLET.ER (FP) PO SCH ×2 (10:21→22:16)
--- NOTE | 2017-02-19 13:52 | PN ---
BHS Progress Note (SOAP) Subjective: Sweating,interrupted sleep,restless Objective: 02/19/17 13:51 Vital Signs - 8 hr 02/19/17 02/19/17 02/19/17 06:30 09:34 13:25 Temperature 95.7 F L 97.3 F L 96.5 F L Pulse Rate 98 H 99 H 108 H Respiratory 18 20 18 Rate Blood Pressure 120/91 123/91 126/92 Laboratory Tests 02/16/17 02/17/17 02/17/17 15:00 08:00 08:00 WBC 7.8 RBC 5.03 Hgb 15.0 Hct 44.9 MCV 89.3 MCHC 33.3 RDW 14.4 Plt Count 193 D MPV 8.1 D Sodium 139 Potassium 3.3 L Chloride 98 Carbon Dioxide 31 Anion Gap 10 BUN 6 L Creatinine 0.8 Creat Clearance w eGFR > 60 Random Glucose 82 D Calcium 9.1 Total Bilirubin 1.4 H D AST 61 H ALT 48 Alkaline Phosphatase 122 H Total Protein 6.9 Albumin 3.8 Urine Color Yellow Urine Appearance Clear Urine pH 6.0 Ur Specific [place] 1.012 Urine Protein Negative Urine Glucose (UA) 2+ H Urine Ketones Trace H Urine Blood 1+ H Urine Nitrite Negative Urine Bilirubin Negative Urine Urobilinogen 2.0 e.u/dl Ur Leukocyte Esterase Negative Urine RBC 2 Urine WBC <1 Urine Mucus Rare RPR Titer 02/17/17 08:00 WBC RBC Hgb Hct MCV MCHC RDW Plt Count MPV Sodium Potassium Chloride Carbon Dioxide Anion Gap BUN Creatinine Creat Clearance w eGFR Random Glucose Calcium Total Bilirubin AST ALT Alkaline Phosphatase Total Protein Albumin Urine Color Urine Appearance Urine pH Ur Specific [place] Urine Protein Urine Glucose (UA) Urine Ketones Urine Blood Urine Nitrite Urine Bilirubin Urine Urobilinogen Ur Leukocyte Esterase Urine RBC Urine WBC Urine Mucus RPR Titer Nonreactive labs noted Assessment: 02/19/17 13:52 Withdrawal sx. Plan: Continue detox
[2017-02-19] MEDS: chlordiazePOXIDE HCL 10 MG CAPSULE PO SCH ×2 (17:05→22:16)
[2017-02-19] MEDS: THIAMINE HCL 100 MG TABLET (FP) PO SCH (22:16)
[2017-02-19] MEDS: ZOLPIDEM TARTRATE 5 MG TABLET PO PRN (22:17)
[2017-02-20] MEDS: chlordiazePOXIDE HCL 10 MG CAPSULE PO SCH (05:42)
[2017-02-20 06:28] VITALS: BP 114/80; PULSE 91; TEMP 96.4
--- NOTE | 2017-02-20 09:27 | DS ---
[facility] Detox Discharge Summary Admission Date: 02/16/17 Discharge Date: 02/20/17 - History Present History: Alcohol Dependence Additional Comments: DETOX COMPLETED. Pertinent Past History: DENIED PMHx HX DEPRESSION - Physical Exam Results Vital Signs: Vital Signs Temperature 96.4 F L 02/20/17 06:28 Pulse Rate 91 H 02/20/17 06:28 Respiratory Rate 16 02/20/17 06:28 Blood Pressure 114/80 02/20/17 06:28 O2 Sat by Pulse Oximetry (%) Pertinent Admission Physical Exam Findings: WITHDRAWAL SX - Treatment Hospital Course: Detox Protocol Followed, Detoxed Safely, Responded well, Discharged Condition Good - Medication Discharge Medications: Ambulatory Orders Bupropion HCl [Wellbutrin -] 150 mg PO BID #30 tablet 01/27/17 - Diagnosis (1) Alcohol dependence with uncomplicated withdrawal Status: Acute (2) Alcohol-induced mood disorder Status: Acute (3) Insomnia Status: Acute (4) Attention deficit disorder (ADD) Status: Chronic (5) MDD (major depressive disorder) Status: Chronic - AMA Did Patient Leave Against Medical Advice: No
== END 2017-02-20 09:42 | disposition home or self-care (01) | DRG 775 ==
LOC: YASAS 08:39 → Y3N 12:02
PROVIDERS: ADMIT Internal Medicine; ATTEND Internal Medicine
PROC: HZ2ZZZZ Detoxification Services for Substance Abuse Treatment (ICD-10-PCS; principal; 2017-02-16)
DX: F10.230 Alcohol dependence with withdrawal, uncomplicated (principal); F10.24 Alcohol dependence with alcohol-induced mood disorder; F98.8 Other specified behavioral and emotional disorders with onset usually occurring in childhood and adolescence; F33.9 Major depressive disorder, recurrent, unspecified; I10 Essential (primary) hypertension; R00.0 Tachycardia, unspecified; E87.6 Hypokalemia; R94.5 Abnormal results of liver function studies; G47.00 Insomnia, unspecified
CPT/HCPCS: 36415; 80053; 81003; 81015; 85027; 86593; 93005; 93010